=== PATIENT | male | born 1970 | race Caucasian/White ===

== ENCOUNTER 2021-06-02 10:17 | Inpatient (IN) | payer SELFPAY ==
[2021-06-02] VITALS (11 sets, daily range): BP systolic 114–146; BP diastolic 68–80; PULSE 75–90; RESP 14–27; TEMP 36.6–37.4; O2SAT 90–96; BMI 36.6; BMI 35.6
--- NOTE | 2021-06-02 10:39 | EDS_ITS ---
HPI History of Present Illness Chief Complaint: Shortness of Breath Detail of Chief Complaint: Cough and cold symptoms Informant: patient Narrative Narrative: Patient presents to the emergency department complaint of not feeling well for several weeks. Patient states that about 5 or 6 days ago he started having worsening symptoms of cough and shortness of breath. Patient described body aches that if not resolved. He describes a mild headache. He has had subjective fever and chills. Denies any Covid exposures. He has not had the Covid vaccine. 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 He complains of exertional dyspnea. Prior similar symptoms: No PFSH PFSH Medical History no medical history Home Medications NK 06/02/21 [History Last Taken Unknown] Allergy/AdvReac Type Severity Reaction Status Date / Time No Known Allergies Allergy Verified 06/02/21 10:20 Social History Smoking Status: Never smoker ROS ROS ED Constitutional Constitutional ED: Reports systems reviewed and no addt'l complaints, except as documented, chills, fever(s) and sweats; Denies body ache(s) or change in weight Eyes Eyes: Denies acute decrease in peripheral vision, change in vision, double vision or loss of vision ENT ENT ED: Reports none; Denies ear pain, lip swelling, loss taste/smell, neck pain, otalgia or sore throat Cardiovascular Cardiovascular: Reports none; Denies abdominal pain, chest pain, chest pain with activity, leg edema, lightheadedness, palpitations, rapid heart rate or syncope Respiratory/Chest Respiratory/Chest: Reports none, cough and dyspnea; Denies change in mental status, dry cough, hemoptysis, shortness of breath at rest or shortness of breath with exertion Gastrointestinal Gastrointestinal: Reports none; Denies abdominal pain, change in stool character, diarrhea, hematemesis, hematochezia, melena, rectal bleeding or vomiting Genitourinary Genitourinary ED: Reports none; Denies abdominal discomfort, anuria, dysuria, genital pain or polyuria Musculoskeletal Musculoskeletal: Reports none and myalgias; Denies arthralgias, back pain, difficulty walking, extremity pain or muscle weakness Integumentary Reports none; Denies abscess or rash Neurologic Neurologic: Reports none and headache(s); Denies abnormal gait, confusion, focal weakness, frequent falls, loss of vision, numbness, paresthesias, radicular pain, vertigo or weakness Psychiatric Psychiatric: Reports systems reviewed and no addt'l complaints, except as documented and none; Denies behavioral changes, confusion, difficulty concentrating, hallucinations, suicidal ideation, tactile hallucinations or visual hallucinations Endocrine Endocrinology: Denies none, cold intolerance, excessive sweating, fatigue or heat intolerance Hematologic/Lymphatic Hematologic/Lymphatic: Reports none; Denies anemia, easy bleeding or easy bruising Allergic/Immunologic Allergic/Immunologic ED: Denies as per HPI, none, lip swelling, mouth swelling, throat swelling, tongue swelling or hives EXAM Physical Exam Const Vital Signs: 06/02/21 10:18 06/02/21 10:36 06/02/21 11:47 Temperature 99.2 F H Temperature Source Temporal Pulse Rate 86 82 Respiratory Rate 14 18 Respiratory Effort Short of Breath Accessory Muscle Use Respiratory Depth Shallow Respiratory Pattern Tachypnea Blood Pressure 138/78 H 120/71 Blood Pressure Mean 98 87 Pulse Ox 91 96 Oxygen Delivery Method Room Air Nasal Cannula Nasal Cannula Oxygen Flow Rate (L/min) 2 2 06/02/21 12:00 Temperature Temperature Source Pulse Rate 80 Respiratory Rate 18 Respiratory Effort Respiratory Depth Respiratory Pattern Blood Pressure 118/69 Blood Pressure Mean 85 Pulse Ox 96 Oxygen Delivery Method Nasal Cannula Oxygen Flow Rate (L/min) 2 Positive well nourished and well developed General Appearance ED: well developed and NAD HEENT Reports TM's clear and moist mucous membranes normocephalic and atraumatic; Negative for trauma or tenderness Tympanic Membrane ED: Yes TM's clear Eyes PERRL and EOMs intact bilaterally General Eye ED: Negative for pale conjunctiva or scleral icterus Neck no lymphadenopathy, supple and no JVD General: Negative for tenderness Chest Wall inspection of chest normal and palpation of chest normal Chest: Negative for tenderness Resp normal respiratory effort and clear to auscultation bilaterally Effort and Inspection: Negative for respiratory distress or pain with movement Auscultation: Negative for rhonchi, wheezes or diminished lung sounds Cardio regular rate, regular rhythm, S1 normal heart sound, S2 normal heart sound and no murmurs Peripheral Pulses: pulses 2+ throughout GI normal to inspection, nondistended, normoactive bowel sounds, soft to palpation, non-tender, non-distended and no masses Back/Spine no CVA tenderness and no thoracic nor lumbar tenderness Extremity normal to inspection General Extremety ED: Negative for edema General Extremity: Negative for edema Neuro oriented x3, CN's II-XII intact bilaterally, no sensory deficits noted and gait normal Sensorium / Orientation: awake, alert, oriented to person, oriented to place and oriented to time Motor Exam: strength 5/5 throughout and strength abnormal Psych mental status grossly normal Skin no rashes or lesions noted and no wounds MDM MDM MDM Narrative Medical decision making narrative: Patient was noted to be hypoxic with ambulation O2 sat dropped to 81 to 83%. Patient was placed on nasal cannula O2. CTA was negative for PE. Patient was started on Decadron. Case will be discussed with hospitalist evaluate for admission. Lab Data Attestation: I reviewed the patient's lab results. Labs: Laboratory Results - last 24 hr 06/02/21 06/02/21 06/02/21 10:50 10:50 11:35 WBC 3.6 L RBC 4.86 Hgb 13.7 Hct 41.3 MCV 85.0 MCH 28.2 MCHC 33.2 RDW Std Deviation 42.5 RDW Coeff of Coleman 13.6 Plt Count 156 MPV 10.5 Immature Gran % (Auto) 0.600 Neut % (Auto) 73.9 H Lymph % (Auto) 19.3 [place] % (Auto) 6.2 Eos % (Auto) 0.0 Baso % (Auto) 0.0 Absolute Neuts (auto) 2.6 Absolute Lymphs (auto) 0.69 L Nucleated RBC % 0 D-Dimer Quant (PE/DVT) 0.63 H* Sodium 134 L Potassium 3.5 Chloride 99 Carbon Dioxide 27.0 Anion Gap 8 BUN 11 Creatinine 1.25 Estim Creat Clear Calc 90.09 Est GFR (MDRD) Af Amer 79 Est GFR (MDRD) Non-Af 65 BUN/Creatinine Ratio 8.8 L Glucose 127 H Calcium 7.7 L Troponin I High Sens 17 Radiography Chest X-Ray - ED: 1 View Diagnostic Testing: Clinical Impression(s) from Imaging Studies Chest X-Ray 06/02/21 10:50 IMPRESSION: Bilateral pulmonary infiltrates and a preferential peripheral distribution worse in the right hemithorax. This is suggestive of pneumonitis secondary to Covid Electronically Signed: Saturnino De Oliveira MD at 11:13 EST , Service support , Chest CTA 06/02/21 12:12 IMPRESSION: No evidence of pulmonary embolism. Diffuse bilateral pulmonary infiltrates worse in the upper lobes. Follow-up is recommended. Electronically Signed: Saturnino De Oliveira MD at 13:04 EST , Service support , 1 view chest x-ray obtained interpreted by myself as diffuse infiltrates. Radiology in agreement. Discharge Plan Triage Chief Complaint: Shortness of Breath ED Provider: Raquel Hogan Dx/Rx/DC Orders Clinical Impression: COVID-19, Hypoxemia Prescriptions: No Action NK RF: 0 Primary Care Provider: Care Physician,No Primary Referrals: Care Physician,No Primary [Primary Care Provider] - Disposition Disposition: Acute Care Hospital [facility]
--- NOTE | 2021-06-02 10:50 | RAD_ITS ---
STUDY: X-RAY CHEST REASON FOR EXAM: Male, 50 years old. Shortness of breath, nausea and cough. TECHNIQUE: Single AP portable view of the chest. COMPARISON: None. FINDINGS: Patchy bilateral pulmonary infiltrates in a preferential peripheral distribution worse in the right hemithorax. Pneumonitis secondary to Covid should be ruled out. There is no demonstrated pleural abnormality. Normal size heart. Normal mediastinum and erica. Normal visualized pulmonary arteries. Normal visualized aortic arch and descending thoracic aorta. Normal visualized thoracic spine. Normal visualized ribs, clavicles, and shoulders. There is no demonstrated abnormality of the visualized soft tissue structures of the upper abdomen. RAD/Chest 1 View (Portable) IMPRESSION: Bilateral pulmonary infiltrates and a preferential peripheral distribution worse in the right hemithorax. This is suggestive of pneumonitis secondary to Covid Electronically Signed: Saturnino De Oliveira MD at 11:13 EST , Service support ,
[2021-06-02 10:57] LABS: Absolute Lymphocyte Count 0.69 X10^3/uL (0.83-4.51); Absolute Neutrophil Count 2.6 X10^3/uL (2.0-7.7); Hematocrit 41.3 % (40-54); Hemoglobin 13.7 g/dL (13.0-16.5); Lymphocyte # 0.69 X10^3/ul (0.83-4.51); Lymphocyte % 19.3 % (19-41); Mean Corp Hgb Conc 33.2 g/dL (32-36); Mean Corpuscular Hgb 28.2 pg (27.0-32.0); Mean Platelet Vol. 10.5 fl (6.2-12.0); Monocyte# 0.22 X10^3/uL; Monocyte% 6.2 % (0-10); NRBC Flagged by Analyzer 0 % (0-5); Neutrophil # 2.64 X10^3/uL (2.7-7.7); Neutrophil % 73.9 % (47-70); Platelet Count 156 K/mm3 (150-450); RBC Distribution Width CV 13.6 % (11.6-14.6); RBC Distribution Width SD 42.5 fl (35.1-43.9); Red Blood Count 4.86 M/mm3 (4.6-6.2); White Blood Count 3.6 K/mm3 (4.4-11.0)
[2021-06-02] MEDS: 0.9% Normal Saline 1,000 ML 150 ML IV (11:12)
[2021-06-02 11:20] LABS: Anion Gap 8 (5-15); BUN 11 mg/dL (7-18); BUN/Creat Ratio 8.8 RATIO (10-20); Calcium,Total 7.7 mg/dL (8.5-10.1); Chloride 99 mmol/L (98-107); Creatinine, Serum 1.25 mg/dL (0.70-1.30); EST Glomerular Filtration Rate 65 mL/min (>60); Est Glom Filt Rate - Afr Amer 79 mL/min (>60); Estimated Creatinine Clearance 90.09 ml/min; Glucose 127 mg/dL (74-106); Potassium 3.5 mmol/L (3.5-5.1); Sodium Level 134 mmol/L (136-145); Troponin-I HS 17 pg/mL (3.0-78.0)
[2021-06-02] MEDS: dexAMETHasone 4 MG Tablet 6 MG PO (11:48)
--- NOTE | 2021-06-02 12:12 | CT_ITS ---
STUDY: CTA CHEST REASON FOR EXAM: Male, 50 years old. Dyspnea RADIATION DOSAGE (If Supplied By Facility): CTDIvol = ( 13.85 ) mGy, DLP = ( 617.82 ) mGycm TECHNIQUE: The examination was performed with the intravenous administration of IV 100mL Isovue-370. Post-processing of the angiographic images was performed, with multiplanar reformation and 3D reconstruction. Individualized dose optimization techniques were used for this CT. COMPARISON: Comparison is made with prior chest radiograph done earlier today. FINDINGS: Normal enhancement of the main pulmonary artery and right and left pulmonary arteries. Normal enhancement of the bilateral peripheral pulmonary arteries. There is no demonstrated pulmonary embolism. Normal thoracic aorta and visualized great vessels. There is no demonstrated aortic dissection. Normal heart and pericardium. Normal mediastinum. Normal hilar regions. Normal visualized trachea and bronchi. The lungs are well expanded. Diffuse bilateral pulmonary infiltrates worse in the upper lobes. Normal pleura. Normal chest wall structures. Normal osseous structures. Normal visualized upper abdomen. CT/CTA Chest W/WO Contrast IMPRESSION: No evidence of pulmonary embolism. Diffuse bilateral pulmonary infiltrates worse in the upper lobes. Follow-up is recommended. Electronically Signed: Saturnino De Oliveira MD at 13:04 EST , Service support ,
[2021-06-02 12:13] LABS: D-Dimer Quantitative (DVT/PE) 0.63 FEU/ug/m (0.27-0.49)
--- NOTE | 2021-06-02 17:37 | PCS.PANDOC ---
PANDEMIC DOCUMENTATION INITIATED: Date: 03/08/2021 Time: 190
[2021-06-02] MEDS: Enoxaparin 40 MG/0.4 ML Syringe SC (18:14)
--- NOTE | 2021-06-02 19:00 | HP.PCM.HOS_ITS ---
HPI - General General Date of Admission: 06/02/21 Date of Service: 06/02/21 Chief Complaint: Shortness of breath HPI Narrative LÓPEZ PALOMARES, is a 50 M who presents to the emergency room at [facility] with a chief complaint of shortness of breath and cough over the last several days. Patient first became ill last Monday, he did not feel well and today he noticed that on walking up a flight of stairs he became severely short of breath. Patient complains of a cough which is dry, he did not complain to this examiner of any chills or fever. Patient has not been vaccinated for COVID-19, he has had no known sick contacts. Patient has no chronic medical conditions. Work-up in the emergency room included labs which showed a neutropenia with a white count of 3.6, D-dimer was slightly elevated at 0.63, chemistry profile was remarkable for a glucose of 127. Patient had a CTA of the chest which showed bilateral pulmonary infiltrates suggestive of COVID-19 pneumonia, no evidence of pulmonary emboli were noted. Patient's COVID-19 rapid antigen test was positive. Patient required supplemental oxygen at 4 L to maintain a pulse ox of 90%. Patient was admitted to [place] [address] for COVID-19 pneumonia with acute hypox ic respiratory failure, I discussed treatment with the patient extensively during the time of my examination. [facility] Medical History (Updated 06/02/21 @ 17:56 by Kristine Juárez) Kidney stones Sleep apnea Medical History no medical history Home Medications NK 06/02/21 [History Last Taken Unknown] Allergy/AdvReac Type Severity Reaction Status Date / Time No Known Allergies Allergy Verified 06/02/21 10:20 Social History Smoking Status: Never smoker ROS Constitutional Constitutional: Reports fatigue; Denies anorexia, change in weight, fever(s), night sweats or weakness Eyes Eyes: Denies blurry vision, change in eye color, change in vision, discharge from eye(s), double vision or eye pain ENT HEENT: Denies abnormal hearing, dysphagia or ear pain Cardiovascular Cardiovascular: Denies chest pain, claudication, edema, lightheadedness or palpitations Respiratory/Chest Respiratory/Chest: Reports cough and shortness of breath with exertion; Denies hemoptysis or shortness of breath at rest Gastrointestinal Gastrointestinal: Denies abdominal pain, constipation, diarrhea, hematemesis, hematochezia, melena, nausea or vomiting Genitourinary Genitourinary: Denies burning urination, difficulty urinating, dysuria, hematuria, urinary frequency, urinary hesitancy, urinary incontinence or urinary urgency Musculoskeletal Musculoskeletal: Denies back pain, joint pain, joint stiffness, joint swelling, myalgias or neck pain Neurologic Neurologic: Denies abnormal gait, abnormal speech, dizziness, focal weakness, headache(s), loss of vision, numbness, other visual disturbances, paresthesias, syncope or tingling Psychiatric Psychiatric: Denies anxiety, cognitive impairment, depression, irritability, mood swings or suicidal ideation Endocrine Endocrinology: Denies change in body appearance, cold intolerance, excessive sweating, heat intolerance, polydipsia or polyuria Hematologic/Lymphatic Hematologic/Lymphatic: Denies none, anemia, easy bleeding, easy bruising or lymphadenopathy Allergic/Immunologic Allergic/Immunologic: Denies rhinitis, urticaria, eczemia or asthma Vital Signs Vital Signs Vital Signs: 06/02/21 10:18 06/02/21 10:36 06/02/21 11:47 Temperature 99.2 F H Temperature Source Temporal Pulse Rate 86 82 Respiratory Rate 14 18 Respiratory Effort Short of Breath Accessory Muscle Use Respiratory Depth Shallow Respiratory Pattern Tachypnea Blood Pressure 138/78 H 120/71 Blood Pressure Mean 98 87 Blood Pressure Source Blood Pressure Position Blood Pressure Location Pulse Ox 91 96 Oxygen Delivery Method Room Air Nasal Cannula Nasal Cannula Oxygen Flow Rate (L/min) 2 2 06/02/21 12:00 06/02/21 13:41 06/02/21 14:11 Temperature 98.7 F Temperature Source Temporal Pulse Rate 80 90 86 Respiratory Rate 18 18 27 H Respiratory Effort Respiratory Depth Respiratory Pattern Blood Pressure 118/69 129/74 H 124/80 H Blood Pressure Mean 85 92 94 Blood Pressure Source Blood Pressure Position Blood Pressure Location Pulse Ox 96 90 Oxygen Delivery Method Nasal Cannula Nasal Cannula Oxygen Flow Rate (L/min) 2 4 06/02/21 15:18 06/02/21 16:53 06/02/21 17:56 Temperature 99.3 F H Temperature Source Oral Pulse Rate 82 78 75 Respiratory Rate 20 H 21 H 18 Respiratory Effort Respiratory Depth Respiratory Pattern Blood Pressure 116/68 114/72 126/72 H Blood Pressure Mean 84 86 90 Blood Pressure Source Monitor Blood Pressure Position Supine Blood Pressure Location Left Forearm Pulse Ox 91 93 94 Oxygen Delivery Method Nasal Cannula Nasal Cannula Nasal Cannula Oxygen Flow Rate (L/min) 6 6 7 Weight Weight: 136.191 kg Body Mass Index (BMI) 35.6 Physical Exam Const alert, oriented x3 and no apparent distress General Appearance: cooperative, well kempt and well developed Orientation / Consciousness: awake, oriented to person, oriented to place and oriented to time HEENT normocephalic, head/scalp atraumatic, hearing grossly normal bilaterally and moist oral mucous membranes Eyes PERRL, EOMs intact bilaterally and conjunctivae normal Neck nuchal rigidity, supple, no JVD, thyroid normal and no carotid bruits General: trachea midline Resp normal respiratory effort, no retractions, no use of accessory muscles and clear to auscultation bilaterally Auscultation: Negative for rales, rhonchi or wheezes Cardio regular rate, regular rhythm, S1 normal heart sound, S2 normal heart sound, no murmurs, no rub and no gallops GI normal to inspection, nondistended, normoactive bowel sounds, soft to palpation, non-tender and non-distended Extremity no clubbing, cyanosis or edema Skin no rashes or lesions noted General Skin Exam: no breakdown Neuro oriented x3, CN's II-XII intact bilaterally, no focal motor deficits and no sensory deficits noted Sensorium / Orientation: awake and alert Speech: speech normal Psych thought process normal and affect normal Results Lab / Micro Data Result Diagrams: 06/02/21 10:50 06/02/21 10:50 Labs: Laboratory Results - last 24 hr 06/02/21 10:50: WBC 3.6 L, RBC 4.86, Hgb 13.7, Hct 41.3, MCV 85.0, MCH 28.2, MCHC 33.2, RDW Std Deviation 42.5, RDW Coeff of Coleman 13.6, Plt Count 156, MPV 10.5, Immature Gran % (Auto) 0.600, Neut % (Auto) 73.9 H, Lymph % (Auto) 19.3, [place] % (Auto) 6.2, Eos % (Auto) 0.0, Baso % (Auto) 0.0, Absolute Neuts (auto) 2.6, Absolute Lymphs (auto) 0.69 L, Nucleated RBC % 0 06/02/21 10:50: Sodium 134 L, Potassium 3.5, Chloride 99, Carbon Dioxide 27.0, Anion Gap 8, BUN 11, Creatinine 1.25, Estim Creat Clear Calc 90.09, Est GFR (MDRD) Af Amer 79, Est GFR (MDRD) Non-Af 65, BUN/Creatinine Ratio 8.8 L, Glucose 127 H, Calcium 7.7 L, Troponin I High Sens 17 06/02/21 11:35: D-Dimer Quant (PE/DVT) 0.63 H* Micro: Microbiology 06/02/21 10:45 Nasal Secretion SARS-CoV-2 Antigen (Rapid) - Final SARS-CoV-2 (COVID 19) Radiology Impression Chest X-Ray 06/02/21 10:50 IMPRESSION: Bilateral pulmonary infiltrates and a preferential peripheral distribution worse in the right hemithorax. This is suggestive of pneumonitis secondary to Covid Electronically Signed: Saturnino De Oliveira MD at 11:13 EST , Service support , Chest CTA 06/02/21 12:12 IMPRESSION: No evidence of pulmonary embolism. Diffuse bilateral pulmonary infiltrates worse in the upper lobes. Follow-up is recommended. Electronically Signed: Saturnino De Oliveira MD at 13:04 EST , Service support , Assessment & Plan Assessment/Plan (1) COVID-19: PLAN: 1. COVID-19 pneumonia-patient will be admitted to [facility], he will be placed on IV dexamethasone and IV remdesivir, labs will be monitored. #2 acute hypoxic respiratory failure secondary to COVID-19 pneumonia-patient's pulse ox will be monitored I explained to the patient that if his respiratory status worsened markedly, he might be a candidate for baricitinib, this would be up to infectious diseases. For now, I do not feel the patient needs to be seen by infectious diseases. Charges/Coding Visit Charges Inpatient E&M: 96228 Init Hosp L3
[2021-06-02 20:19] LABS: AST(SGOT) 63 U/L (15-37); Alanine Aminotransfer ALT/SGPT 42 U/L (16-61); Albumin, Serum 2.2 g/dL (3.2-5.0); Alkaline Phosphatase 37 U/L (45-117); Bilirubin, Direct 0.14 mg/dL (0.00-0.30); Globulin 3.9 g/dL (2.2-4.2); Protein, Total 6.1 g/dL (6.4-8.2)
[2021-06-03 05:21] VITALS: BP 127/79; PULSE 72; RESP 18; TEMP 36.8; O2SAT 93
[2021-06-03 08:01] LABS: Hematocrit 41.4 % (40-54); Hemoglobin 13.6 g/dL (13.0-16.5); Mean Corp Hgb Conc 32.9 g/dL (32-36); Mean Corpuscular Hgb 27.9 pg (27.0-32.0); Mean Platelet Vol. 10.8 fl (6.2-12.0); Platelet Count 145 K/mm3 (150-450); RBC Distribution Width CV 13.4 % (11.6-14.6); Red Blood Count 4.87 M/mm3 (4.6-6.2); White Blood Count 3.9 K/mm3 (4.4-11.0)
[2021-06-03 08:40] LABS: ALB/GLOB Ratio 0.5 RATIO (0.9-2.4); AST(SGOT) 68 U/L (15-37); Alanine Aminotransfer ALT/SGPT 52 U/L (16-61); Alkaline Phosphatase 40 U/L (45-117); Anion Gap 7 (5-15); BUN 15 mg/dL (7-18); BUN/Creat Ratio 14.7 RATIO (10-20); Calcium,Total 8.1 mg/dL (8.5-10.1); Chloride 102 mmol/L (98-107); Creatinine, Serum 1.02 mg/dL (0.70-1.30); EST Glomerular Filtration Rate 82 mL/min (>60); Est Glom Filt Rate - Afr Amer 100 mL/min (>60); Globulin 4.1 g/dL (2.2-4.2); Glucose 116 mg/dL (74-106); Potassium 3.7 mmol/L (3.5-5.1); Protein, Total 6.1 g/dL (6.4-8.2); Sodium Level 138 mmol/L (136-145)
[2021-06-03] MEDS: Enoxaparin 40 MG/0.4 ML Syringe SC (10:35)
[2021-06-03] MEDS: dexAMETHasone 10 MG/ML Vial 6 MG IV (10:38)
[2021-06-03] MEDS: 0.9% Saline Lock 10 ML Syringe IV (10:38)
--- NOTE | 2021-06-03 10:44 | CASEMGMT ---
Addendum entered by Lanie Garcia 06/03/21 11:59: SW provided RN with HCAP application and PFS number to provide to pt. Original Note: Social Work Note Pt is listed as self-pay. SW placed a call to pt's room. SW introduced self and role at [facility]. Pt confirms that he is self-pay, states that he has [employer]. Pt states that he is self-employed. SW asked pt about any financial concerns and pt states he has none, states that he has $30,000 in the bank. SW spoke with pt about HCAP application and COVID19 insurance through [facility]. SW encouraged pt to speak with patient financial services. Pt states he has nothing to write down PFS number. SW informed pt that this worker will send in to pt's room a HCAP application and PFS number. Pt states understanding, denied any additional needs or concerns. Pt denied wanting any prescription assistance resources. Lanie Garcia GRINDING WHEEL INSPECTOR, TRAVEL CLERK
[2021-06-03 11:00] VITALS: BP 128/73; PULSE 88; RESP 18; TEMP 36.8; O2SAT 93
[2021-06-03] MEDS: Furosemide 40 MG/4 ML Vial IV (13:36)
[2021-06-03 13:43] VITALS: O2SAT 91
--- NOTE | 2021-06-03 14:20 | PN.HOSP_ITS ---
Subjective Subjective Follow-up on acute respiratory failure/acute COVID-19 pneumonia: Patient was seen and examined. He is currently on 7 L of oxygen. Denies any fever or chills. Objective Data Objective Data Vital Signs: Vital Signs Temp Pulse Resp BP Pulse Ox 98.3 F 88 18 128/73 H 91 06/03/21 11:00 06/03/21 11:00 06/03/21 11:00 06/03/21 11:00 06/03/21 13:43 Oxygen Flow Rate (L/min) 7 Oxygen Delivery Method Nasal Cannula Weight: 136.191 kg Body Mass Index (BMI) 35.6 Intake & Output: Intake and Output for Last 24 Hours 06/01/21 06/02/21 06/03/21 23:59 23:59 23:59 Intake Total 1250 / 1250 250 / 250 Balance 1250 / 1250 250 / 250 Lab / Micro Data Result Diagrams: 06/03/21 07:25 06/03/21 07:25 Labs: Laboratory Results - last 24 hr 06/02/21 10:50: Total Bilirubin 0.40, Direct Bilirubin 0.14, AST 63 H, ALT 42, Alkaline Phosphatase 37 L, Total Protein 6.1 L, Albumin 2.2 L, Globulin 3.9 06/03/21 07:25: WBC 3.9 L, RBC 4.87, Hgb 13.6, Hct 41.4, MCV 85.0, MCH 27.9, MCHC 32.9, RDW Std Deviation 42.0, RDW Coeff of Coleman 13.4, Plt Count 145 L, MPV 10.8 06/03/21 07:25: Sodium 138, Potassium 3.7, Chloride 102, Carbon Dioxide 29.0, Anion Gap 7, BUN 15, Creatinine 1.02, Estim Creat Clear Calc 110.40, Est GFR (MDRD) Af Amer 100, Est GFR (MDRD) Non-Af 82, BUN/Creatinine Ratio 14.7, Glucose 116 H, Calcium 8.1 L, Total Bilirubin 0.40, AST 68 H, ALT 52, Alkaline Phosphatase 40 L, Total Protein 6.1 L, Albumin 2.0 L, Globulin 4.1, Albumin/Globulin Ratio 0.5 L Micro: Microbiology 06/02/21 10:45 Nasal Secretion SARS-CoV-2 Antigen (Rapid) - Final SARS-CoV-2 (COVID 19) Physical Exam Narrative Physical exam: General: Alert, Oriented x3, Cooperative, No apparent distress, Well developed HEENT: Atraumatic Oral: Moist Mucosa Neck: Supple Lungs: Clear to auscultation Cardiovascular: HS I+II, regular, no murmurs Abdomen: Bowel Sounds Present, Soft, Non Tender Extremities: No edema Assessment & Plan Assessment/Plan (1) COVID-19: PLAN: 1. Acute hypoxic respiratory failure secondary to acute COVID-19 p neum[place] Patient is on 7 L of oxygen. He is unvaccinated. Continue on Decadron and remdesivir Continue to encourage use of incentive spirometer Continue on albuterol inhaler Lasix 40 mg IV x1 2. DVT prophylaxis with Lovenox subcu Charges/Coding Visit Charges Inpatient E&M: 67262 Subs Hosp L2
--- NOTE | 2021-06-03 14:55 | CASEMGMT ---
RN CM NURSERY ATTENDANT CM to room to meet with patient for initial transition planning/care coordination assessment. RAFA HANSEN introduced self and role at [facility]. Pt voices understanding and consents to assessment at this time. Pt resting in bed in no distress at this time. Pt is A/O at this time and answers all questions appropriately. Care providers, pharmacy, and demographics verified/updated at this time. PCP: No PCP. Provided w/list of local PCP's Specialists: None Preferred Pharmacy: [facility] Retail Insurance: Self Pay. SW has met w/pt re: same. See note Prescription Benefit: None Living Will/HPOA: Pt does not currently have LW/HCPOA and interested in talking w/SW to complete. DORON, Lanie, made aware. LNOK: , Koki. Brother, Nicolás Medrano. Living Arrangements: Lives w/ in 2-story home w/3 steps to enter. Independent. does most home mgmt tasks. Transportation: Pt states drives self and states no transportation concerns at this time. also drives. DME: Has a pulse ox. Does not have home O2. Discussed possible need for Home O2 @ d/c. Verbally reviewed list of local DME companies w/pt and she chooses [employer]. Pt made aware cost of O2 for a month supply is approx $200. Pt states this is affordable. Pt states no need for further DME at this time. HHC/SNF: No hx of either. No needs identified. Pt wishes to return home and states has no concerns with going home at time of discharge. CM to follow for home oxygen needs and any further discharge planning/needs. Pt voices no further concerns/needs at this time. Advised pt to ask for CM if any further questions/concerns/needs arise. Voices understanding. PLAN: Home. Follow for any home oxygen needs @ discharge. Pt chooses [employer] for DME co and is agreeable to paying for O2 [id number]. Naima MILLER RN, CM
--- NOTE | 2021-06-03 16:42 | CASEMGMT ---
Social Work Note SW received consult for Advanced Directives. SW in to speak with pt. SW introduced self and role at [facility]. Pt completed HCPOA. Pt denied wanting to complete LW at this time. Lanie Garcia CLAIM ATTORNEY, COOK [employer]UCE
[2021-06-03 17:00] VITALS: BP 124/68; PULSE 76; RESP 18; TEMP 36.7; O2SAT 92
[2021-06-03 20:09] VITALS: PULSE 73; O2SAT 92
[2021-06-03 20:37] VITALS: BP 131/74; PULSE 88; RESP 20; TEMP 36.6; O2SAT 92
[2021-06-03] MEDS: Temazepam 15 MG Capsule PO (23:30)
[2021-06-04] VITALS (7 sets, daily range): BP systolic 127–139; BP diastolic 64–74; PULSE 65–72; RESP 18–24; TEMP 36–36.4; O2SAT 91–94
[2021-06-04 08:56] LABS: Absolute Lymphocyte Count 0.75 X10^3/uL (0.83-4.51); Absolute Neutrophil Count 3.3 X10^3/uL (2.0-7.7); Hematocrit 42.4 % (40-54); Lymphocyte # 0.75 X10^3/ul (0.83-4.51); Lymphocyte % 16.4 % (19-41); Mean Corpuscular Hgb 28.3 pg (27.0-32.0); Mean Corpuscular Volume 85.7 fL (80-94); Mean Platelet Vol. 10.4 fl (6.2-12.0); Monocyte% 10.9 % (0-10); NRBC Flagged by Analyzer 0 % (0-5); Neutrophil # 3.31 X10^3/uL (2.7-7.7); Neutrophil % 72.5 % (47-70); Platelet Count 180 K/mm3 (150-450); RBC Distribution Width CV 13.5 % (11.6-14.6); RBC Distribution Width SD 42.5 fl (35.1-43.9); Red Blood Count 4.95 M/mm3 (4.6-6.2); White Blood Count 4.6 K/mm3 (4.4-11.0)
[2021-06-04] MEDS: dexAMETHasone 10 MG/ML Vial 6 MG IV (09:30)
[2021-06-04] MEDS: Enoxaparin 40 MG/0.4 ML Syringe SC (09:30)
[2021-06-04] MEDS: 0.9% Saline Lock 10 ML Syringe IV ×2 (09:31→13:55)
[2021-06-04 09:38] LABS: ALB/GLOB Ratio 0.5 RATIO (0.9-2.4); AST(SGOT) 91 U/L (15-37); Alanine Aminotransfer ALT/SGPT 89 U/L (16-61); Albumin, Serum 2.2 g/dL (3.2-5.0); Alkaline Phosphatase 45 U/L (45-117); Anion Gap 6 (5-15); BUN 20 mg/dL (7-18); BUN/Creat Ratio 19.6 RATIO (10-20); Calcium,Total 8.3 mg/dL (8.5-10.1); Chloride 103 mmol/L (98-107); Creatinine, Serum 1.02 mg/dL (0.70-1.30); EST Glomerular Filtration Rate 82 mL/min (>60); Est Glom Filt Rate - Afr Amer 100 mL/min (>60); Globulin 4.2 g/dL (2.2-4.2); Glucose 177 mg/dL (74-106); Potassium 3.6 mmol/L (3.5-5.1); Protein, Total 6.4 g/dL (6.4-8.2); Sodium Level 137 mmol/L (136-145)
--- NOTE | 2021-06-04 10:56 | PCM.PN.HOSP ---
Subjective Subjective Follow-up on acute respiratory failure/acute COVID-19 pneumonia: Patient was seen and examined. He is on 6 L of oxygen. Denied any new complaints. Objective Data Objective Data Vital Signs: Vital Signs Temp Pulse Resp BP Pulse Ox 97.6 F L 70 20 H 127/70 H 93 06/04/21 09:38 06/04/21 09:38 06/04/21 09:38 06/04/21 09:38 06/04/21 09:38 Oxygen Flow Rate (L/min) 6 Oxygen Delivery Method Nasal Cannula Weight: 136.191 kg Body Mass Index (BMI) 35.6 Intake & Output: Intake and Output for Last 24 Hours 06/02/21 06/03/21 06/04/21 23:59 23:59 23:59 Intake Total 1250 / 1250 550 / 550 230 / 230 Output Total 1999 / 1999 Balance 1250 / 1250 -1450 / -1450 230 / 230 Lab / Micro Data Result Diagrams: 06/04/21 08:49 06/04/21 08:49 Labs: Laboratory Results - last 24 hr 06/04/21 08:49: WBC 4.6, RBC 4.95, Hgb 14.0, Hct 42.4, MCV 85.7, MCH 28.3, MCHC 33.0, RDW Std Deviation 42.5, RDW Coeff of Coleman 13.5, Plt Count 180, MPV 10.4, Immature Gran % (Auto) 0.200, Neut % (Auto) 72.5 H, Lymph % (Auto) 16.4 L, [place] % (Auto) 10.9 H, Eos % (Auto) 0.0, Baso % (Auto) 0.0, Absolute Neuts (auto) 3.3, Absolute Lymphs (auto) 0.75 L, Nucleated RBC % 0 06/04/21 08:49: Sodium 137, Potassium 3.6, Chloride 103, Carbon Dioxide 28.0, Anion Gap 6, BUN 20 H, Creatinine 1.02, Estim Creat Clear Calc 110.40, Est GFR (MDRD) Af Amer 100, Est GFR (MDRD) Non-Af 82, BUN/Creatinine Ratio 19.6, Glucose 177 H, Calcium 8.3 L, Total Bilirubin 0.30, AST 91 H, ALT 89 H, Alkaline Phosphatase 45, Total Protein 6.4, Albumin 2.2 L, Globulin 4.2, Albumin/Globulin Ratio 0.5 L Micro: Microbiology 06/02/21 10:45 Nasal Secretion SARS-CoV-2 Antigen (Rapid) - Final SARS-CoV-2 (COVID 19) Physical Exam Narrative Physical exam: General: Alert, Oriented x3, Cooperative, No apparent distress, Well developed, obese, on 6 L of oxygen HEENT: Atraumatic Oral: Moist Mucosa Neck: Supple Lungs: Clear to auscultation Cardiovascular: HS I+II, regular, no murmurs Abdomen: Bowel Sounds Present, Soft, Non Tender Extremities: No edema Assessment & Plan Assessment/Plan (1) COVID-19: PLAN: 1. Acute hypoxic respiratory failure secondary to acute COVID-19 pneumonia, slowly improving Patient is on 6 L of oxygen. He is unvaccinated. Continue on Decadron and remdesivir Continue to encourage use of incentive spirometer Continue on albuterol inhaler Lasix 40 mg IV x1 2. DVT prophylaxis with Lovenox subcu Charges/Coding Visit Charges Inpatient E&M: 72515 Subs Hosp L2
[2021-06-04] MEDS: Acetaminophen 325 MG Tablet 650 MG PO (22:48)
[2021-06-04] MEDS: Temazepam 15 MG Capsule PO (22:48)
[2021-06-05] VITALS (7 sets, daily range): BP systolic 121–137; BP diastolic 70–81; PULSE 63–72; RESP 18–22; TEMP 35.5–36.5; O2SAT 92–96
[2021-06-05 08:58] LABS: Absolute Lymphocyte Count 0.89 X10^3/uL (0.83-4.51); Hematocrit 44.7 % (40-54); Hemoglobin 14.5 g/dL (13.0-16.5); Lymphocyte # 0.89 X10^3/ul (0.83-4.51); Lymphocyte % 16.3 % (19-41); Mean Corp Hgb Conc 32.4 g/dL (32-36); Mean Corpuscular Hgb 27.9 pg (27.0-32.0); Mean Corpuscular Volume 86.1 fL (80-94); Mean Platelet Vol. 10.4 fl (6.2-12.0); Monocyte# 0.54 X10^3/uL; Monocyte% 9.9 % (0-10); NRBC Flagged by Analyzer 0 % (0-5); Neutrophil % 73.4 % (47-70); Platelet Count 180 K/mm3 (150-450); RBC Distribution Width CV 13.2 % (11.6-14.6); RBC Distribution Width SD 41.2 fl (35.1-43.9); Red Blood Count 5.19 M/mm3 (4.6-6.2); White Blood Count 5.5 K/mm3 (4.4-11.0)
[2021-06-05 09:16] LABS: ALB/GLOB Ratio 0.5 RATIO (0.9-2.4); AST(SGOT) 71 U/L (15-37); Alanine Aminotransfer ALT/SGPT 100 U/L (16-61); Alkaline Phosphatase 50 U/L (45-117); Anion Gap 5 (5-15); BUN 16 mg/dL (7-18); BUN/Creat Ratio 17.7 RATIO (10-20); Calcium,Total 7.9 mg/dL (8.5-10.1); Chloride 106 mmol/L (98-107); EST Glomerular Filtration Rate 95 mL/min (>60); Est Glom Filt Rate - Afr Amer 114 mL/min (>60); Estimated Creatinine Clearance 125.13 ml/min; Glucose 158 mg/dL (74-106); Potassium 3.9 mmol/L (3.5-5.1); Sodium Level 139 mmol/L (136-145)
[2021-06-05] MEDS: dexAMETHasone 10 MG/ML Vial 6 MG IV (09:49)
[2021-06-05] MEDS: Enoxaparin 40 MG/0.4 ML Syringe SC (09:49)
[2021-06-05] MEDS: 0.9% Saline Lock 10 ML Syringe IV ×3 (09:51→22:36)
--- NOTE | 2021-06-05 15:07 | PCM.PN.HOSP ---
Subjective Subjective Follow-up on acute respiratory failure/acute COVID-19 pneumonia: Patient was seen and examined. He is on 5 L of oxygen. Denied any new complaints. Objective Data Objective Data Vital Signs: Vital Signs Temp Pulse Resp BP Pulse Ox 97.7 F L 69 18 135/75 H 93 06/05/21 13:05 06/05/21 13:05 06/05/21 13:05 06/05/21 13:05 06/05/21 13:05 Oxygen Flow Rate (L/min) 5 Oxygen Delivery Method Nasal Cannula Weight: 136.191 kg Body Mass Index (BMI) 35.6 Intake & Output: Intake and Output for Last 24 Hours 06/03/21 06/04/21 06/05/21 23:59 23:59 23:59 Intake Total 550 / 550 930 / 930 1520 / 1520 Output Total 1999 / 1999 Balance -1450 / -1450 930 / 930 1520 / 1520 Lab / Micro Data Result Diagrams: 06/05/21 08:40 06/05/21 08:40 Labs: Laboratory Results - last 24 hr 06/05/21 08:40: WBC 5.5, RBC 5.19, Hgb 14.5, Hct 44.7, MCV 86.1, MCH 27.9, MCHC 32.4, RDW Std Deviation 41.2, RDW Coeff of Coleman 13.2, Plt Count 180, MPV 10.4, Immature Gran % (Auto) 0.400, Neut % (Auto) 73.4 H, Lymph % (Auto) 16.3 L, [place] % (Auto) 9.9, Eos % (Auto) 0.0, Baso % (Auto) 0.0, Absolute Neuts (auto) 4.0, Absolute Lymphs (auto) 0.89, Nucleated RBC % 0 06/05/21 08:40: Sodium 139, Potassium 3.9, Chloride 106, Carbon Dioxide 28.0, Anion Gap 5, BUN 16, Creatinine 0.90, Estim Creat Clear Calc 125.13, Est GFR (MDRD) Af Amer 114, Est GFR (MDRD) Non-Af 95, BUN/Creatinine Ratio 17.7, Glucose 158 H, Calcium 7.9 L, Total Bilirubin 0.50, AST 71 H, ALT 100 H, Alkaline Phosphatase 50, Total Protein 6.0 L, Albumin 2.0 L, Globulin 4.0, Albumin/Globulin Ratio 0.5 L Micro: Microbiology 06/02/21 10:45 Nasal Secretion SARS-CoV-2 Antigen (Rapid) - Final SARS-CoV-2 (COVID 19) Physical Exam Narrative Physical exam: General: Alert, Oriented x3, Cooperative, No apparent distress, Well developed, obese, on 5 L of oxygen HEENT: Atraumatic Oral: Moist Mucosa Neck: Supple Lungs: Diminished to auscultation Cardiovascular: HS I+II, regular, no murmurs Abdomen: Bowel Sounds Present, Soft, Non Tender Extremities: No edema Assessment & Plan Assessment/Plan (1) COVID-19: PLAN: 1. Acute hypoxic respiratory failure secondary to acute COVID-19 pneumonia, slowly improving Patient is on 5 L of oxygen. He is unvaccinated. Continue on Decadron and remdesivir Continue to encourage use of incentive spirometer Continue on albuterol inhaler 2. DVT prophylaxis with Lovenox subcu Charges/Coding Visit Charges Inpatient E&M: 18256 Subs Hosp L2
[2021-06-05] MEDS: Acetaminophen 325 MG Tablet 650 MG PO (16:23)
[2021-06-05] MEDS: Temazepam 15 MG Capsule PO (22:49)
[2021-06-06] VITALS (7 sets, daily range): BP systolic 129–137; BP diastolic 62–76; PULSE 67–88; RESP 16–20; TEMP 35.9–36.6; O2SAT 92–94
--- NOTE | 2021-06-06 10:03 | PCM.PN.HOSP ---
Subjective Subjective Follow-up on acute respiratory failure/acute COVID-19 pneumonia: Patient was seen and examined. Remains about the same?he is on 5 L of oxygen. Denied any new complaints. Objective Data Objective Data Vital Signs: Vital Signs Temp Pulse Resp BP Pulse Ox 97.8 F 88 18 137/71 H 94 06/06/21 02:00 06/06/21 02:00 06/06/21 02:00 06/06/21 02:00 06/06/21 02:00 Oxygen Flow Rate (L/min) 5 Oxygen Delivery Method Nasal Cannula Weight: 136.191 kg Body Mass Index (BMI) 35.6 Intake & Output: Intake and Output for Last 24 Hours 06/04/21 06/05/21 06/06/21 23:59 23:59 23:59 Intake Total 930 / 930 2220 / 2220 240 / 240 Balance 930 / 930 2220 / 2220 240 / 240 Lab / Micro Data Result Diagrams: 06/05/21 08:40 06/05/21 08:40 Micro: Microbiology 06/02/21 10:45 Nasal Secretion SARS-CoV-2 Antigen (Rapid) - Final SARS-CoV-2 (COVID 19) Physical Exam Narrative Physical exam: General: Alert, Oriented x3, Cooperative, No apparent distress, Well developed, obese, on 5 L of oxygen HEENT: Atraumatic Oral: Moist Mucosa Neck: Supple Lungs: Diminished to auscultation Cardiovascular: HS I+II, regular, no murmurs Abdomen: Bowel Sounds Present, Soft, Non Tender Extremities: No edema Assessment & Plan Assessment/Plan (1) COVID-19: PLAN: Summary: 50-year-old with no significant past medical history, unvaccinated for COVID-19 infection who comes in with progressive shortness of breath 1. Acute hypoxic respiratory failure secondary to acute COVID-19 pneumonia, slowly improving Remains on 5 L of oxygen. He is unvaccinated. Continue on Decadron and remdesivir Continue to encourage use of incentive spirometer Continue on albuterol inhaler 2. DVT prophylaxis with Lovenox subcu Charges/Coding Visit Charges Inpatient E&M: 35459 Subs Hosp L2
[2021-06-06] MEDS: Enoxaparin 40 MG/0.4 ML Syringe SC (10:35)
[2021-06-06] MEDS: dexAMETHasone 10 MG/ML Vial 6 MG IV (10:35)
[2021-06-06] MEDS: Acetaminophen 325 MG Tablet 650 MG PO (14:59)
[2021-06-06] MEDS: Temazepam 15 MG Capsule PO (22:55)
[2021-06-07] VITALS (8 sets, daily range): BP systolic 113–139; BP diastolic 62–77; PULSE 74–83; RESP 16–20; TEMP 35.8–36.7; O2SAT 91–93
[2021-06-07 07:16] LABS: Absolute Lymphocyte Count 0.98 X10^3/uL (0.83-4.51); Absolute Neutrophil Count 5.4 X10^3/uL (2.0-7.7); Basophil# 0.01 X10^3/uL; Basophil% 0.1 % (0-1); Hematocrit 43.8 % (40-54); Hemoglobin 14.2 g/dL (13.0-16.5); Lymphocyte # 0.98 X10^3/ul (0.83-4.51); Lymphocyte % 14.3 % (19-41); Mean Corp Hgb Conc 32.4 g/dL (32-36); Mean Corpuscular Hgb 27.3 pg (27.0-32.0); Mean Corpuscular Volume 84.2 fL (80-94); Mean Platelet Vol. 10.2 fl (6.2-12.0); Monocyte# 0.45 X10^3/uL; Monocyte% 6.6 % (0-10); NRBC Flagged by Analyzer 0 % (0-5); Neutrophil # 5.37 X10^3/uL (2.7-7.7); Neutrophil % 78.7 % (47-70); Platelet Count 224 K/mm3 (150-450); RBC Distribution Width CV 13.3 % (11.6-14.6); RBC Distribution Width SD 41.1 fl (35.1-43.9); White Blood Count 6.8 K/mm3 (4.4-11.0)
[2021-06-07 07:58] LABS: ALB/GLOB Ratio 0.5 RATIO (0.9-2.4); AST(SGOT) 27 U/L (15-37); Alanine Aminotransfer ALT/SGPT 68 U/L (16-61); Alkaline Phosphatase 57 U/L (45-117); Anion Gap 8 (5-15); BUN 18 mg/dL (7-18); BUN/Creat Ratio 23.2 RATIO (10-20); Calcium,Total 8.1 mg/dL (8.5-10.1); Chloride 101 mmol/L (98-107); Creatinine, Serum 0.78 mg/dL (0.70-1.30); EST Glomerular Filtration Rate 113 mL/min (>60); Est Glom Filt Rate - Afr Amer 136 mL/min (>60); Estimated Creatinine Clearance 144.38 ml/min; Globulin 3.9 g/dL (2.2-4.2); Glucose 98 mg/dL (74-106); Potassium 3.8 mmol/L (3.5-5.1); Protein, Total 5.9 g/dL (6.4-8.2); Sodium Level 136 mmol/L (136-145)
[2021-06-07] MEDS: dexAMETHasone 10 MG/ML Vial 6 MG IV (10:53)
[2021-06-07] MEDS: Enoxaparin 40 MG/0.4 ML Syringe SC (10:53)
[2021-06-07] MEDS: 0.9% Saline Lock 10 ML Syringe IV (10:55)
--- NOTE | 2021-06-07 19:24 | PCM.PN.HOSP ---
Subjective Subjective Patient was seen and examined today, he is currently on 7 L of nasal cannula oxygen. Patient remains on IV dexamethasone at this time, he is completed remdesivir Objective Data Objective Data Vital Signs: Vital Signs Temp Pulse Resp BP Pulse Ox 97.8 F 83 18 124/62 H 92 06/07/21 17:00 06/07/21 17:00 06/07/21 17:00 06/07/21 17:00 06/07/21 17:00 Oxygen Flow Rate (L/min) [ 12 AMBULATING with Oxygen #1] Oxygen Flow Rate (L/min) [At 7 REST with Oxygen] Oxygen Flow Rate (L/min) 7 Oxygen Delivery Method High Flow Weight: 136.191 kg Body Mass Index (BMI) 35.6 Intake & Output: Intake and Output for Last 24 Hours 06/05/21 06/06/21 06/07/21 23:59 23:59 23:59 Intake Total 2220 / 2220 490 / 490 Balance 2220 / 2220 490 / 490 Lab / Micro Data Result Diagrams: 06/07/21 06:54 06/07/21 06:54 Labs: Laboratory Results - last 24 hr 06/07/21 06:54: WBC 6.8, RBC 5.20, Hgb 14.2, Hct 43.8, MCV 84.2, MCH 27.3, MCHC 32.4, RDW Std Deviation 41.1, RDW Coeff of Coleman 13.3, Plt Count 224, MPV 10.2, Immature Gran % (Auto) 0.300, Neut % (Auto) 78.7 H, Lymph % (Auto) 14.3 L, [place] % (Auto) 6.6, Eos % (Auto) 0.0, Baso % (Auto) 0.1, Absolute Neuts (auto) 5.4, Absolute Lymphs (auto) 0.98, Nucleated RBC % 0 06/07/21 06:54: Sodium 136, Potassium 3.8, Chloride 101, Carbon Dioxide 27.0, Anion Gap 8, BUN 18, Creatinine 0.78, Estim Creat Clear Calc 144.38, Est GFR (MDRD) Af Amer 136, Est GFR (MDRD) Non-Af 113, BUN/Creatinine Ratio 23.2 H, Glucose 98, Calcium 8.1 L, Total Bilirubin 0.50, AST 27, ALT 68 H, Alkaline Phosphatase 57, Total Protein 5.9 L, Albumin 2.0 L, Globulin 3.9, Albumin/Globulin Ratio 0.5 L Micro: Microbiology 06/02/21 10:45 Nasal Secretion SARS-CoV-2 Antigen (Rapid) - Final SARS-CoV-2 (COVID 19) Physical Exam Const alert, oriented x3 and no apparent distress General Appearance: cooperative, well kempt and well developed Orientation / Consciousness: awake, oriented to person, oriented to place and oriented to time HEENT normocephalic, head/scalp atraumatic and moist oral mucous membranes Head and Scalp: normocephalic Eyes PERRL, EOMs intact bilaterally and conjunctivae normal Neck nuchal rigidity, supple, no JVD and thyroid normal General: trachea midline Resp normal respiratory effort, no retractions, no use of accessory muscles and clear to auscultation bilaterally Auscultation: Negative for rales, rhonchi or wheezes Cardio regular rate, regular rhythm, S1 normal heart sound, S2 normal heart sound, no murmurs, no rub and no gallops GI normal to inspection, nondistended, normoactive bowel sounds, soft to palpation, non-tender and non-distended Extremity no clubbing, cyanosis or edema Skin no rashes or lesions noted General Skin Exam: no breakdown Neuro oriented x3, CN's II-XII intact bilaterally, no focal motor deficits and no sensory deficits noted Sensorium / Orientation: awake and alert Speech: speech normal Psych thought process normal and affect normal Assessment & Plan Assessment/Plan (1) COVID-19: PLAN: #1 COVID-19 pneumonia-patient remains on IV dexamethasone at this time, he is completed remdesivir #2 Acute hypoxic respiratory failure secondary to acute COVID-19 pneumonia, slowly improving Remains on 7 L of oxygen. Continue IV dexamethasone Charges/Coding Visit Charges Inpatient E&M: 77434 Subs Hosp L2
[2021-06-08 00:29] VITALS: BP 127/60; PULSE 66; RESP 20; TEMP 35.8; O2SAT 92
[2021-06-08 02:31] VITALS: BP 121/74; PULSE 72; RESP 18; TEMP 36.4; O2SAT 96
[2021-06-08 08:02] LABS: Absolute Lymphocyte Count 0.99 X10^3/uL (0.83-4.51); Absolute Neutrophil Count 5.7 X10^3/uL (2.0-7.7); Eosinophil# 0.02 X10^3/uL; Eosinophils% 0.3 % (0-5); Hematocrit 43.8 % (40-54); Hemoglobin 14.3 g/dL (13.0-16.5); Lymphocyte # 0.99 X10^3/ul (0.83-4.51); Lymphocyte % 13.7 % (19-41); Mean Corp Hgb Conc 32.6 g/dL (32-36); Mean Corpuscular Hgb 27.8 pg (27.0-32.0); Mean Corpuscular Volume 85.2 fL (80-94); Mean Platelet Vol. 10.1 fl (6.2-12.0); Monocyte# 0.51 X10^3/uL; Monocyte% 7.1 % (0-10); NRBC Flagged by Analyzer 0 % (0-5); Neutrophil # 5.67 X10^3/uL (2.7-7.7); Neutrophil % 78.6 % (47-70); Platelet Count 279 K/mm3 (150-450); RBC Distribution Width CV 13.6 % (11.6-14.6); RBC Distribution Width SD 42.3 fl (35.1-43.9); Red Blood Count 5.14 M/mm3 (4.6-6.2); White Blood Count 7.2 K/mm3 (4.4-11.0)
[2021-06-08 09:22] LABS: ALB/GLOB Ratio 0.5 RATIO (0.9-2.4); AST(SGOT) 23 U/L (15-37); Alanine Aminotransfer ALT/SGPT 56 U/L (16-61); Albumin, Serum 1.9 g/dL (3.2-5.0); Alkaline Phosphatase 56 U/L (45-117); Anion Gap 7 (5-15); BUN 19 mg/dL (7-18); BUN/Creat Ratio 19.3 RATIO (10-20); Calcium,Total 8.3 mg/dL (8.5-10.1); Chloride 101 mmol/L (98-107); Creatinine, Serum 0.98 mg/dL (0.70-1.30); EST Glomerular Filtration Rate 86 mL/min (>60); Est Glom Filt Rate - Afr Amer 104 mL/min (>60); Estimated Creatinine Clearance 114.91 ml/min; Globulin 4.1 g/dL (2.2-4.2); Glucose 137 mg/dL (74-106); Potassium 3.9 mmol/L (3.5-5.1); Sodium Level 137 mmol/L (136-145)
[2021-06-08 10:25] VITALS: BP 131/71; PULSE 79; RESP 18; TEMP 36.8; O2SAT 94
[2021-06-08] MEDS: Enoxaparin 40 MG/0.4 ML Syringe SC (10:30)
[2021-06-08] MEDS: dexAMETHasone 10 MG/ML Vial 6 MG IV (10:30)
[2021-06-08] MEDS: 0.9% Saline Lock 10 ML Syringe IV (10:31)
[2021-06-08 14:46] VITALS: BP 123/64; PULSE 79; RESP 18; TEMP 36.5; O2SAT 95
--- NOTE | 2021-06-08 19:42 | PN.HOSP_ITS ---
Subjective Subjective Patient was seen and examined today, he is currently on 5 L nasal cannula at rest, I believe he will need at least 7 L when walking, I walking pulse oximetry was not done on the patient today. This will have to be performed tomorrow to see if the patient qualifies for home oxygen or whether his flow rate is too hi gh for home oxygen. Patient does not complain of any fevers or chills, he is currently on dexamethasone. Objective Data Objective Data Vital Signs: Vital Signs Temp Pulse Resp BP Pulse Ox 97.7 F L 79 18 123/64 H 95 06/08/21 14:46 06/08/21 14:46 06/08/21 14:46 06/08/21 14:46 06/08/21 14:46 Oxygen Flow Rate (L/min) [ 12 AMBULATING with Oxygen #1] Oxygen Flow Rate (L/min) [At 7 REST with Oxygen] Oxygen Flow Rate (L/min) 5 Oxygen Delivery Method Nasal Cannula Weight: 136.191 kg Body Mass Index (BMI) 35.6 Intake & Output: Intake and Output for Last 24 Hours 06/06/21 06/07/21 06/08/21 23:59 23:59 23:59 Intake Total 490 / 490 450 / 450 Balance 490 / 490 450 / 450 Lab / Micro Data Result Diagrams: 06/08/21 07:45 06/08/21 07:45 Labs: Laboratory Results - last 24 hr 06/08/21 07:45: WBC 7.2, RBC 5.14, Hgb 14.3, Hct 43.8, MCV 85.2, MCH 27.8, MCHC 32.6, RDW Std Deviation 42.3, RDW Coeff of Coleman 13.6, Plt Count 279, MPV 10.1, Immature Gran % (Auto) 0.300, Neut % (Auto) 78.6 H, Lymph % (Auto) 13.7 L, [place] % (Auto) 7.1, Eos % (Auto) 0.3, Baso % (Auto) 0.0, Absolute Neuts (auto) 5.7, Absolute Lymphs (auto) 0.99, Nucleated RBC % 0 06/08/21 07:45: Sodium 137, Potassium 3.9, Chloride 101, Carbon Dioxide 29.0, Anion Gap 7, BUN 19 H, Creatinine 0.98, Estim Creat Clear Calc 114.91, Est GFR (MDRD) Af Amer 104, Est GFR (MDRD) Non-Af 86, BUN/Creatinine Ratio 19.3, Glucose 137 H, Calcium 8.3 L, Total Bilirubin 0.50, AST 23, ALT 56, Alkaline Phosphatase 56, Total Protein 6.0 L, Albumin 1.9 L, Globulin 4.1, Albumin/Globulin Ratio 0.5 L Micro: Microbiology 06/02/21 10:45 Nasal Secretion SARS-CoV-2 Antigen (Rapid) - Final SARS-CoV-2 (COVID 19) Physical Exam Const alert, oriented x3, no apparent distress and healthy appearing General Appearance: cooperative, well kempt and well developed Orientation / Consciousness: awake, oriented to person, oriented to place and oriented to time HEENT normocephalic, head/scalp atraumatic and moist oral mucous membranes Head and Scalp: normocephalic Eyes PERRL, EOMs intact bilaterally and conjunctivae normal Neck nuchal rigidity, supple, no JVD, thyroid normal and no carotid bruits General: trachea midline Resp normal respiratory effort, no retractions, no use of accessory muscles and clear to auscultation bilaterally Auscultation: Negative for rales, rhonchi or wheezes Cardio regular rate, regular rhythm, S1 normal heart sound, S2 normal heart sound, no murmurs, no rub and no gallops GI normal to inspection, nondistended, normoactive bowel sounds, soft to palpation, non-tender and non-distended Extremity no clubbing, cyanosis or edema Skin no rashes or lesions noted General Skin Exam: no breakdown Neuro oriented x3, CN's II-XII intact bilaterally, no focal motor deficits and no sensory deficits noted Sensorium / Orientation: awake and alert Speech: speech normal Psych thought process normal and affect normal Assessment & Plan Assessment/Plan (1) COVID-19: PLAN: #1 COVID-19 pneumonia-patient remains on IV dexamethasone at this time, he is c ompleted remdesivir #2 Acute hypoxic respiratory failure secondary to acute COVID-19 pneumonia, sl owly improving Remains on 5 L of oxygen at rest. He will need a walking pulse oximetry to determine whether he can go home, this will have to be done tomorrow. Charges/Coding Visit Charges Inpatient E&M: 73562 Subs Hosp L2
[2021-06-08 21:35] VITALS: BP 124/77; PULSE 70; RESP 20; TEMP 36.6; O2SAT 96
[2021-06-09 02:30] VITALS: BP 142/79; PULSE 74; RESP 18; TEMP 36.4; O2SAT 94
[2021-06-09 05:52] VITALS: O2SAT 84; O2SAT 88; O2SAT 91; O2SAT 92
[2021-06-09 08:11] VITALS: O2SAT 90
[2021-06-09] MEDS: Enoxaparin 40 MG/0.4 ML Syringe SC (10:23)
[2021-06-09] MEDS: dexAMETHasone 4 MG Tablet 6 MG PO (10:23)
[2021-06-09 10:28] VITALS: BP 115/74; PULSE 85; RESP 18; TEMP 36.4; O2SAT 91
[2021-06-09 10:56] VITALS: O2SAT 84; O2SAT 86; O2SAT 91; O2SAT 93
--- NOTE | 2021-06-09 11:35 | CASEMGMT ---
Pt qualifies for home O2. TC to [facility], they do not have O2 concentrators. TC to [facility], donn. TC to [facility] who does have O2 concentrators and can deliver to pt this date although does not accept self pay. TC to [facility] who does not accept self pay. TC to [facility]. They do service pt area and take self pay. Cost is $176/month for concentrator and $10 per portable tank. Spoke with patient and he is agreeable to use this company and for the cost. Referral faxed at this time.
--- NOTE | 2021-06-09 13:38 | PCM.DC ---
Discharge Instructions Diet Discharge Diet: No restrictions Activity Discharge Activity: Return to Normal Activity (slowly ease back into your routine. ) Dressing / Incision Call your doctor if you observe: Fever of 101 or Higher and Shortness of breath Additional Dressing/Incision Instructions:: Self isolate for at least 20 days since symptoms began 05/23-06/11/2021 AND at least one day (24 hours) have passed since resolution of fever without the use of fever-reducing agents AND improvement of symptoms (e.g., cough, shortness of breath) When around people in the same room, wear a face mask. Individuals also in the room should wear a mask. If possible, use a different bathroom and bedroom. Perform adequate hand hygiene. Avoid sharing dishes, glasses, etc. Follow Up Care Test Results: Test results from this visit will be discussed in further detail at your follow-up appointment, if applicable. Discharge Plan Admission Admit Date/Time: 06/02/21 15:27 Primary Reason for Your Visit: COVID 19 Attending Provider: Everton Duarte Primary Care Provider: Care Physician,Alexa Primary Discharge Orders/Prescriptions Prescriptions: New dexamethasone 4 mg Tablet 6 mg PO DAILY 3 Days Qty: 5 RF: 0 albuterol sulfate [Proventil HFA] 90 mcg/actuation Hfa Aerosol Inhaler 2 puff inhalation Q4 Qty: 6.7 RF: 0 acetaminophen [Tylenol] 325 mg Tablet 650 mg PO Q6H PRN PRN (Reason: Pain Score 1-10/Temp > 100.7 F) Qty: 0 RF: 0 Referrals / Follow Up: Care Physician,Alexa Primary [Primary Care Provider] - Disposition Disposition (needs filled in before D/C Order can be placed): Home, Self Care
--- NOTE | 2021-06-09 13:42 | PCM.DC.SUM ---
Providers Date of Admission: 06/02/21 Primary Care Physician: No Primary Care Phys Reason For Visit: COVID, HYPOXIA Diagnosis Discharge Diagnosis (1) COVID-19: Status: Acute Code(s): U07.1 - COVID-19 Medications at Discharge Home Medications acetaminophen [Tylenol] 650 mg PO Q6H PRN PRN #0 tab 06/09/21 albuterol sulfate [Proventil HFA] 2 puff INHALATION Q4 #6.7 g 06/09/21 dexamethasone 6 mg PO DAILY 3 Days #5 tab 06/09/21 Hospital Course Operations None Summary of Care Provided Minutes Spent on Discharge: 32 Hospital Course: 50-year-old male presents with worsening shortness of breath. Patient became ill around Halloween. Progressively more short of breath and did require oxygen. Patient was started dexamethasone as well as remdesivir. Overall, the patient remained stable and will be discharged home today. Patient will be on oxygen 2 L with rest and 4 L with activity. Patient will continue with dexamethasone complete 10-day course of antibiotics. Patient advised of the risk of secondary bacterial pneumonias such as fever worsening shortness of breath. He does experience at the notify his primary care physician or come back into the emergency room for evaluation. Physical Exam Const alert and oriented x3 Resp normal respiratory effort, no retractions, no use of accessory muscles and clear to auscultation bilaterally Cardio regular rate, regular rhythm, S1 normal heart sound and S2 normal heart sound GI normal to inspection, nondistended, normoactive bowel sounds, soft to palpation and non-distended Weight / BMI Weight Weight: 136.191 kg Body Mass Index (BMI) 35.6 ABG / Lab / Microbiology Data Result Diagrams: 06/08/21 07:45 06/08/21 07:45 Microbiology: Microbiology 06/02/21 10:45 Nasal Secretion SARS-CoV-2 Antigen (Rapid) - Final SARS-CoV-2 (COVID 19) D/C Instructions Discharge Diet: No restrictions Call your doctor if you observe: Fever of 101 or Higher and Shortness of breath Additional Dressing/Incision Instructions: Self isolate for at least 20 days since symptoms began 05/23-06/11/2021 AND at least one day (24 hours) have passed since resolution of fever without the use of fever-reducing agents AND improvement of symptoms (e.g., cough, shortness of breath) When around people in the same room, wear a face mask. Individuals also in the room should wear a mask. If possible, use a different bathroom and bedroom. Perform adequate hand hygiene. Avoid sharing dishes, glasses, etc. Meaningful Use Info Meaningful Use Diagnoses (Choose all that apply): None applicable Discharge Plan Admission Admit Date/Time: 06/02/21 15:27 Primary Reason for Your Visit: COVID 19 Attending Provider: Everton Duarte Primary Care Provider: Care Physician,Alexa Primary Discharge Orders/Prescriptions Prescriptions: New dexamethasone 4 mg Tablet 6 mg PO DAILY 3 Days Qty: 5 RF: 0 albuterol sulfate [Proventil HFA] 90 mcg/actuation Hfa Aerosol Inhaler 2 puff inhalation Q4 Qty: 6.7 RF: 0 acetaminophen [Tylenol] 325 mg Tablet 650 mg PO Q6H PRN PRN (Reason: Pain Score 1-10/Temp > 100.7 F) Qty: 0 RF: 0 Referrals / Follow Up: Care Physician,No Primary [Primary Care Provider] - Within 2 Weeks (establish with a PCP) Disposition Disposition (needs filled in before D/C Order can be placed): Home, Self Care Charges/Coding Visit Charges Inpatient E&M: 91197 Disch Hosp
[2021-06-09 15:54] VITALS: BP 128/74; PULSE 82; RESP 20; TEMP 36.6; O2SAT 94
== END 2021-06-09 17:12 | disposition home or self-care (01) | DRG 177 ==
LOC: ED 13:21 → MS3 16:36
PROVIDERS: Internal Medicine; Admitting Provider Internal Medicine; Emergency Provider Emergency Medicine
DX: U07.1 COVID-19 (principal); J12.82 Pneumonia due to coronavirus disease 2019; J96.01 Acute respiratory failure with hypoxia
CPT/HCPCS: 36415; 71045; 71275; 80048; 80053; 80076; 84484; 85025; 85027; 85379; 87426; 94762; 97802; 97803; 99285; J7030; J7050; Q9967; A4216; J1940

== ENCOUNTER 2022-11-18 20:42 | Emergency (ER) | payer SELFPAY ==
[2022-11-18 20:43] VITALS: BP 158/99; PULSE 90; RESP 18; TEMP 36.4; O2SAT 99; BMI 37.6
[2022-11-18] MEDS: predniSONE 20 MG Tablet 60 MG PO (21:43)
--- NOTE | 2022-11-18 21:50 | RAD_ITS ---
INDICATION: cough EXAMINATION/TECHNIQUE: X-RAY - XR Chest 1 View COMPARISON: 06/02/2021. FINDINGS: Bilateral interstitial and airspace opacities. Normal thoracic aorta. The heart is borderline enlarged. No pleural effusion or pneumothorax. Mild degenerative changes of the thoracic spine. RAD/Chest 1 View (Portable) IMPRESSION: Bilateral interstitial and airspace opacities may represent edema and/or infection. Electronically Signed: Eran Quinones MD at 22:16 EDT ,
--- NOTE | 2022-11-18 21:55 | ED.VIS.DYS ---
HPI History of Present Illness Chief Complaint: Shortness of Breath Narrative Narrative: 52-year-old male presenting with cough. He states he has had some yellow and green sputum. Onset was 3 days ago. 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 He states his had symptoms while he was away as well. No fevers. Mild generalized malaise. No chest pain. Mild shortness of breath. Patient denies asthma or COPD. He is non-smoker. PFSH PFSH Medical History Hypertension Kidney stones Non-smoker Sleep apnea Home Medications acetaminophen 325 mg tablet (Tylenol) 650 mg PO Q6H PRN PRN Pain Score 1-10/Temp > 100.7 F #0 tabs 06/09/21 [Rx Last Taken Unknown] azithromycin 250 mg tablet 250 mg PO DAILY #4 TABLETS 11/18/22 [Rx Last Taken Unknown] prednisone 50 mg tablet 50 mg PO DAILY 5 days #5 tabs 11/18/22 [Rx Last Taken Unknown] Allergy/AdvReac Type Severity Reaction Status Date / Time No Known Allergies Allergy Verified 11/18/22 20:44 Social History Smoking Status: Never smoker ROS ROS ED Constitutional Constitutional ED: Denies chills or fever(s) Eyes Eyes: Denies change in vision or diplopia ENT ENT ED: Denies rhinorrhea or sore throat Cardiovascular Cardiovascular: Denies chest pain or palpitations Respiratory/Chest Respiratory/Chest: Reports cough and dyspnea Gastrointestinal Gastrointestinal: Denies abdominal pain or constipation Genitourinary Genitourinary ED: Denies dysuria or hematuria Musculoskeletal Musculoskeletal: Denies arthralgias Integumentary Denies abscess or Abrasions Neurologic Neurologic: Denies headache(s) Psychiatric Psychiatric: Denies anxiety or depression EXAM Physical Exam Const Vital Signs: 11/18/22 20:43 11/18/22 20:49 11/18/22 22:15 Temperature 97.6 F L Temperature Source Temporal Pulse Rate 90 94 Respiratory Rate 18 20 H Respiratory Effort Short of Breath Respiratory Depth Normal Respiratory Pattern Normal Blood Pressure 158/99 H Blood Pressure Mean 118 Pulse Ox 99 Oxygen Delivery Method Room Air Room Air Positive well nourished General Appearance ED: NAD; Negative for pallor HEENT Reports moist mucous membranes Eyes PERRL and EOMs intact bilaterally Neck no lymphadenopathy and supple Resp normal respiratory effort Auscultation: wheezes scattered wheezes Cardio regular rate and regular rhythm Neuro oriented x3 and CN's II-XII intact bilaterally Sensorium / Orientation: alert and oriented to person Motor Exam: strength 5/5 throughout Psych mental status grossly normal Skin no wounds General Skin Exam: Negative for jaundice or pallor MDM MDM MDM Narrative Medical decision making narrative: 52-year-old male presenting with cough and mild dyspnea. He states he is producing sputum. He denied a fever that he knows of. His vital signs are stable he is afebrile. Patient is wheezing on examination. He states he does not have asthma or COPD and is not a smoker but after having COVID-19 he believes he was told he had some wheezing. He was initially admitted for that for hypoxic respiratory failure. Differential includes COVID-19, influenza, pneumonia. He does not have any chest pain. We will obtain a rapid COVID and influenza. Chest x-ray will be obtained as well. Given breathing treatments and prednisone because he is wheezing. We will reevaluate him. Patient said he feels better after breathing treatments. Chest x-ray shows bilateral interstitial infiltrates versus inflammation my interpretation. Radiologist interprets this similarly. Rapid COVID and influenza are negative. On reevaluation patient ambulated on pulse ox and maintain sats 90 to 92%. He feels better. I will start him on a Z-[place] with first dose in the ER. Prednisone burst as well. He was given albuterol inhaler from the ER. Return precautions were discussed. Impression: 1. Pneumonia 2. Reactive airway Radiography Diagnostic Testing: Clinical Impression(s) from Imaging Studies Chest X-Ray 11/18/22 21:50 IMPRESSION: Bilateral interstitial and airspace opacities may represent edema and/or infection. Electronically Signed: Eran Quinones MD at 22:16 EDT , Discharge Plan Triage Chief Complaint: Shortness of Breath ED Provider: Brian Duran Dx/Rx/DC Orders Instructions: ED Bronchospasm (Adult), ED Pneumonia (Adult) Prescriptions: New azithromycin 250 mg tablet 250 mg PO DAILY Qty: 4 0RF prednisone 50 mg tablet 50 mg PO DAILY 5 Days Qty: 5 0RF No Action acetaminophen [Tylenol] 325 mg Tablet 650 mg PO Q6H PRN PRN (Reason: Pain Score 1-10/Temp > 100.7 F) Qty: 0 0RF Primary Care Provider: Care Physician,No Primary Referrals: Edilma Pacheco MD [Med Staff - Children Librarian] - 3-5 Days Care Physician,No Primary [Primary Care Provider] - Disposition Disposition: Home, Self Care
[2022-11-18 22:15] VITALS: PULSE 94; RESP 20
[2022-11-18] MEDS: Ipratropium/Albuterol Sulfate 3 ML AMPUL.NEB INHALATION (22:15)
[2022-11-18] MEDS: Albuterol 2.5 MG/3 ML VIAL.NEB. INHALATION (22:15)
[2022-11-18] MEDS: Azithromycin 250 MG Tablet 500 MG PO (22:40)
[2022-11-18] MEDS: Albuterol Sulfate 8 gm Inhaler (60 puffs) 2 PUFF INHALATION (22:40)
[2022-11-18 22:44] VITALS: O2SAT 90
== END 2022-11-18 23:30 | disposition home or self-care (01) ==
PROVIDERS: Emergency Provider Student in an Organized Health Care Education/Training Program; Visit Provider Student in an Organized Health Care Education/Training Program
DX: J18.9 Pneumonia, unspecified organism (principal); Z86.16 Personal history of COVID-19
CPT/HCPCS: 71045; 87428; 94640; 99281; 99283